=== PATIENT | male | born 1960 | race Two or more races ===

== ENCOUNTER 2024-03-27 07:27 | Day surgery (SDC) | payer OTHER ==
[~2024-03-27 07:27] MED LIST: AVAPRO300 MG PO
[2024-03-27] MEDS ORDERED: CEFAZOLIN SODIUM 1,000 MG VIAL ONE ×2 (09:18→10:20)
[2024-03-27] MEDS ORDERED: BUPIVACAINE HCL/MPF 0.5% 30ML VIAL ONE ×2 (09:18→11:36)
[2024-03-27] MEDS ORDERED: MIRALAX17 GM PO (10:47)
[2024-03-27] MEDS ORDERED: KETO10TA2 PO (10:47)
[2024-03-27] MEDS ORDERED: TRAMADOL HCL50 MG PO (10:47)
[2024-03-27] MEDS ORDERED: NEURONTIN300 MG PO (10:47)
[2024-03-27] MEDS ORDERED: TYLENOL ARTHRI650 MG PO (10:47)
== END 2024-03-27 17:35 | disposition home or self-care (01) ==
LOC: CIR.AMB 07:27
PROVIDERS: ATTEND Surgery
DX: K42.0 Umbilical hernia with obstruction, without gangrene (principal); K43.6 Other and unspecified ventral hernia with obstruction, without gangrene; I10 Essential (primary) hypertension
CPT/HCPCS: 49594; C1781

== ENCOUNTER → 2024-12-11 | Day surgery (SDC) | payer OTHER ==
[~2024-12-11] MED LIST changes: +DIPHENHYDRAMINE HCL 50 MG/ML VIAL 1ML IV ONE; +KETO10TA2 PO; +MIDAZOLAM HCL 2 MG/2 ML VIAL IV ONE; +MIRALAX17 GM PO; +NEURONTIN300 MG PO; +TRAMADOL HCL50 MG PO; +TYLENOL ARTHRI650 MG PO; +fentaNYL CITRATE 50 MCG/ML AMPUL IV PUSH ONE
== END | disposition home or self-care (01) ==
LOC: ADM 12-04 13:00 → CIR.AMB 07:00
PROVIDERS: ATTEND Internal Medicine
DX: D12.5 Benign neoplasm of sigmoid colon (principal); K63.5 Polyp of colon; K57.30 Diverticulosis of large intestine without perforation or abscess without bleeding; Z86.0101 Personal history of adenomatous and serrated colon polyps